=== PATIENT | female | born 1955 | race Hispanic/Latino ===

== ENCOUNTER 2020-10-12 04:21 | Emergency (ER) | payer BC ==
[~2020-10-12] VITALS: Ht 154.9 cm; Wt 98.4 kg
[2020-10-12] MEDS ORDERED: ONDANSETRON HCL INJ 2MG/ML 2ML 2 MG/ML VIAL IV STA (04:30)
[2020-10-12] MEDS ORDERED: KETOROLAC TROMETHAMINE 30 MG/ML VIAL IV STA (04:30)
[2020-10-12 04:40] LABS: BASOPHILS % 0.6 % (0.0-1.0); EOSINOPHILS # (AUTO) 0.2 (0.0-0.4); HEMATOCRIT 39.8 % (34.2-44.1); LYMPHOCYTES # (AUTO) 1.8 (1.0-3.2); LYMPHOCYTES % 33.5 % (18.0-39.1); MEAN CORPUSCULAR HEMOGLOBIN 32.9 pg (28-32); MEAN CORPUSCULAR HGB CONC 35.2 g/dL (31-35); MEAN CORPUSCULAR VOLUME 93.6 fL (81-99); MONOCYTES # (AUTO) 0.5 (0.2-0.8); MONOCYTES % 9.2 % (4.4-11.3); NEUTROPHILS # (AUTO) 2.9 (2.1-6.9); NEUTROPHILS % 53.5 % (38.7-80.0); PLATELET COUNT 140 x10e3/uL (140-360); RED BLOOD COUNT 4.25 x10e6/uL (3.6-5.1); RED CELL DISTRIBUTION WIDTH 12.7 % (11.7-14.4)
[2020-10-12 04:46] LABS: CLARITY,URINE CLEAR (CLEAR); COLOR,URINE YELLOW (YELLOW); KETONES,URINE NEGATIVE (NEGATIVE); LEUKOCYTE ESTERASE ,URINE NEGATIVE (NEGATIVE); NITRITE,URINE NEGATIVE (NEGATIVE); PROTEIN,URINE DIPSTICK NEGATIVE (NEGATIVE); URINE UROBILINOGEN 1 mg/dL (0.2 - 1)
[2020-10-12 04:54] LABS: BACTERIA,URINE RARE /HPF; EPITHELIAL CELLS,URINE FEW /LPF; MUCUS,URINE FEW (RARE); RBC,URINE 0-5 /HPF (0-5); WBC,URINE (MAN) 0-5 /HPF (0-5)
[2020-10-12 05:01] LABS: ANION GAP 15.5 mmol/L (8-16); BLOOD UREA NITROGEN 19 mg/dL (7-26); BUN/CREATININE RATIO 24 (6-25); CALCIUM 8.6 mg/dL (8.4-10.2); CARBON DIOXIDE 20 mmol/L (22-29); CHLORIDE 111 mmol/L (98-107); CREATININE, SERUM 0.78 mg/dL (0.57-1.11); EST GLOMERULAR FILTRATION RATE > 60 ML/MIN (60-); GLUCOSE 101 mg/dL (74-118); POTASSIUM 4.5 mmol/L (3.5-5.1); SODIUM 142 mmol/L (136-145)
[2020-10-12] MEDS ORDERED: LIDOPATCH1 EACH TOP (05:48)
[2020-10-12 05:56] VITALS: BP 109/61
== END 2020-10-12 05:59 | disposition home or self-care (01) ==
LOC: ER 04:54
DX: M54.5 Low back pain (principal); R11.2 Nausea with vomiting, unspecified; K80.20 Calculus of gallbladder without cholecystitis without obstruction; K76.0 Fatty (change of) liver, not elsewhere classified; I10 Essential (primary) hypertension; H40.9 Unspecified glaucoma
CPT/HCPCS: 36415; 74176; 80048; 81001; 85025; 99284; J1885; J2405

== ENCOUNTER 2022-10-04 18:09 | Emergency (ER) | payer BC ==
[~2022-10-04] VITALS: Ht 154.9 cm; Wt 98.4 kg
[~2022-10-04 18:09] MED LIST: LIDOPATCH1 EACH TOP
[2022-10-04] MEDS ORDERED: SODIUM CHLORIDE 0.9% IV ONE (19:30)
[2022-10-04 19:59] VITALS: O2SAT 98
== END 2022-10-04 20:05 | disposition home or self-care (01) ==
LOC: FSED 18:29
DX: E86.0 Dehydration (principal); E86.1 Hypovolemia; R42 Dizziness and giddiness; R53.81 Other malaise
CPT/HCPCS: 70450; 93005; 99284

== ENCOUNTER 2023-04-11 11:12 | Emergency (ER) | payer BC, MEDICARE ==
[~2023-04-11] VITALS: Ht 154.9 cm; Wt 98.9 kg
[2023-04-11] MEDS ORDERED: SODIUM CHLORIDE 0.9% 1000ML 1,000 ML IV ONE ×2 (12:00→14:00)
[2023-04-11] MEDS ORDERED: SODIUM CHLORIDE FLUSH 10 ML SYR IV PRN (12:00)
[2023-04-11 12:38] LABS: BASOPHILS % 0.6 % (0.0-1.0); EOSINOPHILS # (AUTO) 0.1 (0.0-0.4); EOSINOPHILS % 2.7 % (0.0-6.0); HEMATOCRIT 36.8 % (34.2-44.1); HEMOGLOBIN 12.8 g/dL (12.0-16.0); LYMPHOCYTES # (AUTO) 1.5 (1.0-3.2); LYMPHOCYTES % 31.8 % (18.0-39.1); MEAN CORPUSCULAR HEMOGLOBIN 32.9 pg (28-32); MEAN CORPUSCULAR HGB CONC 34.8 g/dL (31-35); MEAN CORPUSCULAR VOLUME 94.6 fL (81-99); MONOCYTES # (AUTO) 0.3 (0.2-0.8); MONOCYTES % 6.8 % (4.4-11.3); NEUTROPHILS # (AUTO) 2.8 (2.1-6.9); NEUTROPHILS % 57.9 % (38.7-80.0); PLATELET COUNT 135 x10e3/uL (140-360); RED BLOOD COUNT 3.89 x10e6/uL (3.6-5.1); RED CELL DISTRIBUTION WIDTH 12.5 % (11.7-14.4); WHITE BLOOD COUNT 4.84 x10e3/uL (4.8-10.8)
[2023-04-11 13:03] LABS: ALBUMIN 3.2 g/dL (3.5-5.0); ALBUMIN/GLOBULIN RATIO 1.2 (0.8-2.0); ANION GAP 13.2 mmol/L (8-16); BILIRUBIN,TOTAL 2.1 mg/dL (0.2-1.2); CALCIUM 8.9 mg/dL (8.4-10.2); CREATININE, SERUM 0.89 mg/dL (0.57-1.11); POTASSIUM 4.2 mmol/L (3.5-5.1); TOTAL PROTEIN 5.8 g/dL (6.5-8.1)
[2023-04-11 13:10] LABS: TROPONIN I 0.005 ng/mL (0-0.300)
[2023-04-11] MEDS ORDERED: TIZANIDINE HCL4 MG PO (13:51)
[2023-04-11] MEDS ORDERED: OLMESARTAN-HCT1 EACH PO (13:51)
[2023-04-11 15:37] LABS: BILIRUBIN,URINE NEGATIVE (NEGATIVE); CLARITY,URINE SL CLOUDY (CLEAR); COLOR,URINE YELLOW (YELLOW); GLUCOSE, URINE NEGATIVE (NEGATIVE); KETONES,URINE NEGATIVE (NEGATIVE); LEUKOCYTE ESTERASE ,URINE NEGATIVE (NEGATIVE); NITRITE,URINE NEGATIVE (NEGATIVE); PH,URINE 6 (5 - 7); PROTEIN,URINE DIPSTICK NEGATIVE (NEGATIVE); URINE UROBILINOGEN 0.2 mg/dL (0.2 - 1)
[2023-04-11 15:52] LABS: BACTERIA,URINE RARE /HPF; HYALINE CASTS 0-1 (0-1); MUCUS,URINE FEW (RARE); WBC,URINE (MAN) 0-5 /HPF (0-5)
[2023-04-11 17:11] VITALS: O2SAT 99
== END 2023-04-11 17:05 | disposition home or self-care (01) ==
LOC: ER 11:28
DX: R42 Dizziness and giddiness (principal); E86.1 Hypovolemia; I10 Essential (primary) hypertension; K76.9 Liver disease, unspecified; H40.9 Unspecified glaucoma
CPT/HCPCS: 36415; 71045; 80053; 81001; 84484; 85025; 93005; 94760; 99284; J7030

== ENCOUNTER 2024-01-14 09:58 | Emergency (ER) | payer BC, MEDICARE ==
[~2024-01-14] VITALS: Ht 157.5 cm; Wt 90.7 kg
[~2024-01-14 09:58] MED LIST changes: +OLMESARTAN-HCT1 EACH PO; +TIZANIDINE HCL4 MG PO
[2024-01-14 10:14] VITALS: TEMP 98.4
[2024-01-14 10:23] VITALS: BP 137/61; PULSE 102
[2024-01-14] MEDS: SODIUM CHLORIDE 0.9% 1000ML 500 ML IV ONE (10:51)
[2024-01-14 13:23] VITALS: PULSE 93; RESP 18; O2SAT 97
== END 2024-01-14 13:05 | disposition home or self-care (01) ==
LOC: FSED 10:08
DX: R42 Dizziness and giddiness (principal); E86.0 Dehydration; J32.9 Chronic sinusitis, unspecified; C22.7 Other specified carcinomas of liver; E11.65 Type 2 diabetes mellitus with hyperglycemia; I10 Essential (primary) hypertension; E78.5 Hyperlipidemia, unspecified; K21.9 Gastro-esophageal reflux disease without esophagitis
CPT/HCPCS: 70450; 80053; 82553; 84484; 85025; 93005; 99284; J7030

== ENCOUNTER 2024-03-04 08:20 | Emergency (ER) | payer BC, MEDICARE ==
[~2024-03-04] VITALS: Ht 157.5 cm; Wt 90.7 kg
[2024-03-04 08:24] VITALS: TEMP 98.3
[2024-03-04] MEDS ORDERED: SODIUM CHLORIDE FLUSH 10 ML SYR IV PRN (08:30)
[2024-03-04 09:00] LABS: BASOPHILS % 0.3 % (0.0-1.0); EOSINOPHILS # (AUTO) 0.1 (0.0-0.4); EOSINOPHILS % 1.5 % (0.0-6.0); HEMATOCRIT 42.2 % (34.2-44.1); LYMPHOCYTES # (AUTO) 0.9 (1.0-3.2); LYMPHOCYTES % 27.7 % (18.0-39.1); MEAN CORPUSCULAR HEMOGLOBIN 33.7 pg (28-32); MEAN CORPUSCULAR HGB CONC 33.2 g/dL (31-35); MEAN CORPUSCULAR VOLUME 101.4 fL (81-99); MONOCYTES # (AUTO) 0.5 (0.2-0.8); MONOCYTES % 14.2 % (4.4-11.3); NEUTROPHILS # (AUTO) 1.9 (2.1-6.9); PLATELET COUNT 106 x10e3/uL (140-360); RED BLOOD COUNT 4.16 x10e6/uL (3.6-5.1); RED CELL DISTRIBUTION WIDTH 16.1 % (11.7-14.4); WHITE BLOOD COUNT 3.39 x10e3/uL (4.8-10.8)
[2024-03-04 09:15] LABS: INR 1.19; PROTHROMBIN TIME 15.7 seconds (11.9-14.5)
[2024-03-04 09:16] LABS: PARTIAL THROMBOPLASTIN TIME 32.9 seconds (23.8-35.5)
[2024-03-04 09:25] LABS: ALBUMIN 2.8 g/dL (3.5-5.0); ALBUMIN/GLOBULIN RATIO 0.8 (0.8-2.0); ANION GAP 20.4 mmol/L (8-16); BILIRUBIN,TOTAL 3.5 mg/dL (0.2-1.2); CALCIUM 9.2 mg/dL (8.4-10.2); CREATININE, SERUM 1.16 mg/dL (0.57-1.11); POTASSIUM 4.4 mmol/L (3.5-5.1); TOTAL PROTEIN 6.1 g/dL (6.5-8.1)
[2024-03-04 09:26] LABS: TROPONIN I 0.013 ng/mL (0-0.300)
[2024-03-04] MEDS ORDERED: IOPAMIDOL 370 MG/ML 100 ML INFUS..BTL INJ ONE (09:41)
[2024-03-04] MEDS ORDERED: SODIUM CHLORIDE 0.9% 100 ML ONE (09:41)
[2024-03-04 10:03] VITALS: PULSE 74; RESP 20; O2SAT 96
[2024-03-04 10:06] LABS: CLARITY,URINE CLOUDY (CLEAR); COLOR,URINE YELLOW (YELLOW); GLUCOSE, URINE NEGATIVE (NEGATIVE); KETONES,URINE TRACE (NEGATIVE); LEUKOCYTE ESTERASE ,URINE NEGATIVE (NEGATIVE); NITRITE,URINE NEGATIVE (NEGATIVE); PH,URINE 6 (5 - 7); PROTEIN,URINE DIPSTICK 2+ (NEGATIVE)
[2024-03-04 10:07] LABS: BILIRUBIN,URINE SMALL (NEGATIVE); URINE UROBILINOGEN 1 mg/dL (0.2 - 1)
[2024-03-04 10:22] LABS: EPITHELIAL CELLS,URINE MODERATE /LPF
[2024-03-04 10:24] LABS: BACTERIA,URINE MODERATE /HPF; RBC,URINE 0-5 /HPF (0-5)
[2024-03-04] MEDS ORDERED: LACTULOSE SYRUP 20 GM/30 ML UDC PO ONE (10:45)
[2024-03-04 11:45] VITALS: PULSE 83; RESP 15; O2SAT 96
[2024-03-04] MEDS: ASPIRIN 81 MG CHEW TAB PO ONE (14:28)
== END 2024-03-04 14:25 | disposition other institution (70) ==
LOC: ER 08:24
DX: K76.82 Hepatic encephalopathy (principal); C22.8 Malignant neoplasm of liver, primary, unspecified as to type; E78.5 Hyperlipidemia, unspecified; I10 Essential (primary) hypertension; E11.65 Type 2 diabetes mellitus with hyperglycemia; H40.9 Unspecified glaucoma; K21.9 Gastro-esophageal reflux disease without esophagitis; R94.31 Abnormal electrocardiogram [ECG] [EKG]
CPT/HCPCS: 36415; 70450; 70496; 70498; 71045; 80053; 81001; 82140; 83880; 84484; 85025; 85610; 85730; 87040; 87086; 92526; 92610; 93005; 94760; 94799; 99284; J0696; J7050; Q9967